=== PATIENT | female | born 1985 | race Caucasian/White ===

== ENCOUNTER 2017-12-11 08:13 | Inpatient (IN) | payer OTHER ==
[2017-12-11] VITALS (26 sets, daily range): BP systolic 101–138; BP diastolic 59–87
[~2017-12-11] VITALS: Ht 177.8 cm; Wt 90.0 kg
[~2017-12-11 08:13] MED LIST: AUGMENTIN500 MG PO; BIOTIN1000 MICRO PO; CALCIUM + D SO1 EACH PO; CHROMAGEN,1 CAPSULE PO; DOCUSATE SODIU100 MG PO; FA-80.8 MG PO; IBUPROFEN800 MG PO; NOHOMEMEDS; POTASSIUM-9999 MG PO; PRENATAL TABLE1 EAC3 PO; PROBIOTIC1 EAC1 PO
[2017-12-11 10:09] LABS: BASOPHIL (%) 0.5 % (0-1); BASOPHIL COUNT 0.1 K/uL (0-0.1); EOSINOPHIL (%) 0.5 % (0-5); EOSINOPHIL COUNT 0.1 K/uL (0-0.3); HEMATOCRIT 30.5 % (36.0-46.0); HEMOGLOBIN 9.7 G/DL (11.9-15.5); IMMATURE GRANULOCYTE (%) 2.7 % (0.0-0.7); LYMPHOCYTE (%) 14.4 % (15-42); LYMPHOCYTE COUNT 1.9 K/uL (1.0-2.8); MCH 23.9 PG (29.0-34.0); MCHC 31.8 G/DL (30.0-36.0); MCV 75.1 FL (83-99); MONOCYTE (%) 10.8 % (3-12); MONOCYTE COUNT 1.4 K/uL (0-0.8); NEUTROPHIL (%) 71.1 % (45-76); NEUTROPHIL COUNT 9.3 K/uL (1.8-6.4); PLATELET COUNT 152 K/uL (156-360); RBC DIS.WIDTH-CV 14.7 % (11.8-14.6); RBC DIS.WIDTH-SD 39.7 % (39-53); RED BLOOD COUNT 4.06 M/uL (3.80-5.20)
[2017-12-11 10:28] LABS: COCAINE NEGATIVE (150 ng/mL); PHENCYCLIDINE NEGATIVE (25 ng/mL); THC CANNABINOIDS NEGATIVE (50 ng/mL)
[2017-12-11 10:29] LABS: AMPHETAMINE NEGATIVE (500 ng/mL); BARBITURATES NEGATIVE (200 ng/mL); BENZODIAZEPINES NEGATIVE (150 ng/mL); BUPRENORPHINE NEGATIVE (10 ng/mL); METHADONE NEGATIVE (200 ng/mL); METHAMPHETAMINE NEGATIVE (500 ng/mL); OPIATES (MORPHINE) NEGATIVE (100 ng/mL); OXYCODONE NEGATIVE (100 ng/mL); PROPOXYPHENE NEGATIVE (300 ng/mL); TRICYCLIC ANTIDEPRESSANTS NEGATIVE (300 ng/mL)
[2017-12-12 00:57] VITALS: BP 114/66
[2017-12-12 06:47] LABS: BASOPHIL (%) 0.2 % (0-1); EOSINOPHIL (%) 0.2 % (0-5); EOSINOPHIL COUNT 0.1 K/uL (0-0.3); HEMATOCRIT 26.9 % (36.0-46.0); HEMOGLOBIN 8.5 G/DL (11.9-15.5); IMMATURE GRANULOCYTE (%) 1.3 % (0.0-0.7); LYMPHOCYTE (%) 10.7 % (15-42); LYMPHOCYTE COUNT 2.2 K/uL (1.0-2.8); MCH 23.9 PG (29.0-34.0); MCHC 31.6 G/DL (30.0-36.0); MCV 75.6 FL (83-99); MONOCYTE (%) 10.8 % (3-12); MONOCYTE COUNT 2.3 K/uL (0-0.8); NEUTROPHIL (%) 76.8 % (45-76); NRBC (%) 0.3 /100 WBC (0-0); PLATELET COUNT 146 K/uL (156-360); RBC DIS.WIDTH-CV 14.6 % (11.8-14.6); RBC DIS.WIDTH-SD 40.3 % (39-53); RED BLOOD COUNT 3.56 M/uL (3.80-5.20); WHITE BLOOD COUNT 20.8 K/uL (4.1-10.2)
[2017-12-12 22:50] VITALS: BP 89/52
[2017-12-13] MEDS ORDERED: CHROMAGEN,1 CAPSULE PO (09:13)
[2017-12-13] MEDS ORDERED: IBUPROFEN800 MG PO (09:14)
== END 2017-12-13 11:02 | disposition home or self-care (01) | DRG 775 ==
LOC: LDRP-OP 08:13 → 2WEST 08:14 → LDRP-OP 15:30 → 2WEST 21:56 → LDRP-OP 01-12 15:10
PROVIDERS: Advanced Practice Midwife
DX: O99.824 Streptococcus B carrier state complicating childbirth (principal); Z37.0 Single live birth; Z3A.39 39 weeks gestation of pregnancy; D50.9 Iron deficiency anemia, unspecified; O12.04 Gestational edema, complicating childbirth; O99.02 Anemia complicating childbirth; O70.0 First degree perineal laceration during delivery; O99.12 Other diseases of the blood and blood-forming organs and certain disorders involving the immune mechanism complicating childbirth; D69.6 Thrombocytopenia, unspecified; O69.81X1 Labor and delivery complicated by cord around neck, without compression, fetus 1
CPT/HCPCS: 85025; C1755; J2540; J3010; J7120